=== PATIENT | female | born 1970 | race Caucasian/White ===

== ENCOUNTER 2016-08-27 00:34 | Emergency (ER) | payer SELFPAY ==
[~2016-08-27] VITALS: Ht 165.1 cm; Wt 94.4 kg
[2016-08-27] MEDS ORDERED: KETOROLAC 30 MG/1 ML IVPush ONE (01:00)
[2016-08-27] MEDS ORDERED: PROCHLORPERAZINE 5 MG/ML, 2ML IVPush ONE (01:00)
[2016-08-27] MEDS ORDERED: SODIUM CHLORIDE 0.9% 1,000ML IVBOLUS ONE (01:00)
[2016-08-27] MEDS ORDERED: DIPHENHYDRAMINE 50 MG/ML, 1ML IVPush ONE (01:00)
[2016-08-27] MEDS ORDERED: SODIUM CHLORIDE FLUSH 10ML SYR IVF ONE (01:00)
[2016-08-27] MEDS ORDERED: DIPHENHYDRAMINE 50 MG/ML, 1ML ONE (01:30)
[2016-08-27] MEDS ORDERED: KETOROLAC 30 MG/1 ML ONE (01:30)
[2016-08-27 01:31] LABS: HEMOGLOBIN 14.1 g/dL (11.7-16.4)
[2016-08-27] MEDS ORDERED: PROCHLORPERAZINE 5 MG/ML, 2ML ONE (01:31)
[2016-08-27 01:35] LABS: BLOOD UREA NITROGEN 17 mg/dL (7-18)
[2016-08-27 02:25] VITALS: BP 105/60
== END 2016-08-27 02:27 | disposition home or self-care (01) ==
LOC: EDBD 00:34 → ED 02:21
DX: R51 Headache (principal); I10 Essential (primary) hypertension
CPT/HCPCS: 36415; 70450; 80048; 82040; 85025; 96361; 96374; 96375; 99285; J0780; J1200; J1885; J7030